=== PATIENT | male | born 1945 | race Caucasian/White ===

== ENCOUNTER 2021-10-15 16:32 | Inpatient (IN) | payer MEDICARE, OTHER ==
[2021-10-15] MEDS ORDERED: Sodium Chloride 0.9% 1,000 ML IV ONE ×2 (16:36→18:25)
[2021-10-15] MEDS ORDERED: Sodium Chloride 0.9% 10 ML Syringe FLUSH PRN (16:36)
[2021-10-15] MEDS ORDERED: Piperacillin/Tazobactam 3.375 GM in Sodium Chloride 0.9% 100 ML IV ONE (16:36)
[2021-10-15] MEDS ORDERED: Sodium Chloride 0.9% 2.5 ML Syringe FLUSH PRN (16:36)
[2021-10-15] MEDS ORDERED: Acetaminophen 325 MG Tab PO ONE (16:50)
[2021-10-15 17:12] LABS: BLOOD UREA NITROGEN,BUN 43 mg/dL (7.0-18.0); CARBON DIOXIDE,CO2 21.5 mmol/L (21.0-32.0); CHLORIDE,CL 101 mmol/L (98-107); ESTIMATED GFR 29 mL/min (>60); GLUCOSE RANDOM 269 mg/dL (74-106); SODIUM,NA 136 mmol/L (136-148)
[2021-10-15] MEDS ORDERED: Lactated Ringers 1,000 ML IV ONE (18:25)
[2021-10-15] MEDS ORDERED: VANCOmycin 1.75 GM/350 ML 1.75 GM in Premix Bag 1 BAG IV ONE ×2 (19:00→21:00)
[2021-10-15] MEDS ORDERED: Azithromycin 500 MG Vial IV SCH ×2 (19:00→22:00)
[2021-10-15] MEDS: Gabapentin 300 MG Cap PO SCH (21:10)
[2021-10-15] MEDS: Apixaban 5 MG Tab PO SCH (21:10)
[2021-10-15] MEDS: Metoprolol Tartrate 50 MG Tab PO SCH (21:20)
[2021-10-15] MEDS ORDERED: Norepinephrine 4 MG in Dextrose 5% in Water 246 ML IV SCH ×2 (22:45)
[2021-10-15] MEDS: Piperacillin/Tazobactam 3.375 GM in Sodium Chloride 0.9% 50 ML IV SCH (22:49)
[2021-10-15] MEDS: Azithromycin 500 MG in Sodium Chloride 0.9% 250 ML IV SCH (23:35)
[2021-10-16] MEDS: Piperacillin/Tazobactam 3.375 GM in Sodium Chloride 0.9% 50 ML IV SCH ×4 (03:55→21:15)
[2021-10-16] MEDS ORDERED: Glucagon,Human Recombinant 1 MG Vial IM PRN (04:20)
[2021-10-16] MEDS ORDERED: 50% Dextrose in Water 50 ML Syringe IVPUSH PRN (04:20)
[2021-10-16] MEDS: Albuterol/Ipratropium 3.0-0.5 MG/3 ML Neb Soln NEB PRN ×2 (06:37→16:18)
[2021-10-16 06:51] LABS: CARBON DIOXIDE,CO2 23.5 mmol/L (21.0-32.0)
[2021-10-16] MEDS: Insulin Aspart 100 Units/ML 3 ML Pen SUBCUT SCH ×3 (08:23→17:36)
[2021-10-16] MEDS: Allopurinol 300 MG Tab PO SCH (08:47)
[2021-10-16] MEDS: atorvaSTATin 10 MG Tab PO SCH (08:48)
[2021-10-16] MEDS: predniSONE 5 MG Tab PO SCH (08:48)
[2021-10-16] MEDS: Apixaban 5 MG Tab PO SCH ×2 (08:48→21:15)
[2021-10-16] MEDS: Metoprolol Tartrate 50 MG Tab PO SCH ×3 (08:49→21:14)
[2021-10-16] MEDS ORDERED: Colchicine 0.6 MG Tab PO SCH (09:00)
[2021-10-16 21:02] LABS: BORDETELLA PARAPERT IS1001 Not Detected (Not Detected)
[2021-10-16] MEDS: Gabapentin 300 MG Cap PO SCH (21:15)
[2021-10-16] MEDS: Azithromycin 500 MG in Sodium Chloride 0.9% 250 ML IV SCH (23:13)
[2021-10-17] MEDS: Piperacillin/Tazobactam 3.375 GM in Sodium Chloride 0.9% 50 ML IV SCH ×4 (03:15→22:00)
[2021-10-17 06:00] LABS: CARBON DIOXIDE,CO2 21.2 mmol/L (21.0-32.0); POTASSIUM,K 3.2 mmol/L (3.5-5.1)
[2021-10-17] MEDS: Insulin Aspart 100 Units/ML 3 ML Pen SUBCUT SCH ×3 (07:56→17:22)
[2021-10-17] MEDS ORDERED: Potassium Chloride 20 MEQ Tab.ER PO ONE (09:09)
[2021-10-17] MEDS: Allopurinol 300 MG Tab PO SCH (09:50)
[2021-10-17] MEDS: Apixaban 5 MG Tab PO SCH ×2 (09:50→20:35)
[2021-10-17] MEDS: atorvaSTATin 10 MG Tab PO SCH (09:50)
[2021-10-17] MEDS: predniSONE 5 MG Tab PO SCH (09:50)
[2021-10-17] MEDS: Metoprolol Tartrate 50 MG Tab PO SCH ×2 (09:50→20:34)
[2021-10-17] MEDS: Albuterol/Ipratropium 3.0-0.5 MG/3 ML Neb Soln NEB PRN ×3 (10:08→23:26)
[2021-10-17] MEDS ORDERED: Polyethylene Glycol 3350 Powder 17 GM Packet PO ONE (10:14)
[2021-10-17] MEDS ORDERED: Docusate Sodium 100 MG Cap PO PRN (10:15)
[2021-10-17] MEDS ORDERED: Bisacodyl 5 MG Tab PO PRN (10:15)
[2021-10-17] MEDS: Gabapentin 300 MG Cap PO SCH (20:34)
[2021-10-17] MEDS: Azithromycin 500 MG in Sodium Chloride 0.9% 250 ML IV SCH (22:37)
[2021-10-18] MEDS: Piperacillin/Tazobactam 3.375 GM in Sodium Chloride 0.9% 50 ML IV SCH ×4 (03:56→21:55)
[2021-10-18 07:02] LABS: CARBON DIOXIDE,CO2 21.4 mmol/L (21.0-32.0); POTASSIUM,K 3.4 mmol/L (3.5-5.1)
[2021-10-18] MEDS: Insulin Aspart 100 Units/ML 3 ML Pen SUBCUT SCH ×3 (08:01→17:18)
[2021-10-18] MEDS: predniSONE 5 MG Tab PO SCH (08:17)
[2021-10-18] MEDS: Allopurinol 300 MG Tab PO SCH (08:17)
[2021-10-18] MEDS: Apixaban 5 MG Tab PO SCH ×2 (08:17→20:26)
[2021-10-18] MEDS: atorvaSTATin 10 MG Tab PO SCH (08:18)
[2021-10-18] MEDS: Metoprolol Tartrate 50 MG Tab PO SCH ×2 (08:18→20:26)
[2021-10-18] MEDS: Albuterol/Ipratropium 3.0-0.5 MG/3 ML Neb Soln NEB PRN (13:43)
[2021-10-18] MEDS: Gabapentin 300 MG Cap PO SCH (20:26)
[2021-10-18] MEDS: Azithromycin 500 MG in Sodium Chloride 0.9% 250 ML IV SCH (22:28)
[2021-10-19] MEDS: Piperacillin/Tazobactam 3.375 GM in Sodium Chloride 0.9% 50 ML IV SCH (03:33)
[2021-10-19] MEDS: Albuterol/Ipratropium 3.0-0.5 MG/3 ML Neb Soln NEB PRN ×2 (05:55→20:16)
[2021-10-19 06:16] LABS: CARBON DIOXIDE,CO2 21.9 mmol/L (21.0-32.0); POTASSIUM,K 3.3 mmol/L (3.5-5.1)
[2021-10-19] MEDS: Insulin Aspart 100 Units/ML 3 ML Pen SUBCUT SCH ×3 (08:12→17:57)
[2021-10-19] MEDS: Allopurinol 300 MG Tab PO SCH (08:19)
[2021-10-19] MEDS: Metoprolol Tartrate 50 MG Tab PO SCH ×2 (08:19→20:14)
[2021-10-19] MEDS: Apixaban 5 MG Tab PO SCH ×2 (08:19→20:15)
[2021-10-19] MEDS: predniSONE 5 MG Tab PO SCH (08:19)
[2021-10-19] MEDS: atorvaSTATin 10 MG Tab PO SCH (08:19)
[2021-10-19] MEDS ORDERED: Potassium Chloride 20 MEQ Tab.ER PO ONE (09:30)
[2021-10-19] MEDS: cefTRIAXone 2 GM/50 ML BAG IV SCH (09:54)
[2021-10-19] MEDS: Gabapentin 300 MG Cap PO SCH (20:15)
[2021-10-19] MEDS: Azithromycin 500 MG in Sodium Chloride 0.9% 250 ML IV SCH (22:31)
[2021-10-20 07:42] LABS: CARBON DIOXIDE,CO2 22.3 mmol/L (21.0-32.0); POTASSIUM,K 3.5 mmol/L (3.5-5.1)
[2021-10-20] MEDS: Insulin Aspart 100 Units/ML 3 ML Pen SUBCUT SCH ×3 (08:09→17:14)
[2021-10-20] MEDS: Apixaban 5 MG Tab PO SCH ×2 (08:56→20:55)
[2021-10-20] MEDS: Metoprolol Tartrate 50 MG Tab PO SCH ×2 (08:56→20:53)
[2021-10-20] MEDS: predniSONE 5 MG Tab PO SCH (08:57)
[2021-10-20] MEDS: atorvaSTATin 10 MG Tab PO SCH (08:57)
[2021-10-20] MEDS: Allopurinol 300 MG Tab PO SCH (08:57)
[2021-10-20] MEDS: cefTRIAXone 2 GM/50 ML BAG IV SCH (09:39)
[2021-10-20] MEDS: Torsemide 20 MG Tab PO SCH ×2 (13:24→21:22)
[2021-10-20] MEDS: Albuterol/Ipratropium 3.0-0.5 MG/3 ML Neb Soln NEB PRN ×2 (14:52→21:23)
[2021-10-20] MEDS: Gabapentin 300 MG Cap PO SCH (20:54)
[2021-10-20] MEDS: Azithromycin 500 MG in Sodium Chloride 0.9% 250 ML IV SCH (22:31)
[2021-10-21] MEDS: Torsemide 20 MG Tab PO SCH ×3 (05:57→22:44)
[2021-10-21 06:29] LABS: CARBON DIOXIDE,CO2 24.8 mmol/L (21.0-32.0); POTASSIUM,K 3.3 mmol/L (3.5-5.1)
[2021-10-21] MEDS: Insulin Aspart 100 Units/ML 3 ML Pen SUBCUT SCH ×3 (07:55→17:10)
[2021-10-21] MEDS: atorvaSTATin 10 MG Tab PO SCH (08:07)
[2021-10-21] MEDS: Apixaban 5 MG Tab PO SCH ×2 (08:07→20:23)
[2021-10-21] MEDS: Allopurinol 300 MG Tab PO SCH (08:08)
[2021-10-21] MEDS: Metoprolol Tartrate 50 MG Tab PO SCH ×2 (08:10→20:25)
[2021-10-21] MEDS: predniSONE 5 MG Tab PO SCH (08:11)
[2021-10-21] MEDS: cefTRIAXone 2 GM/50 ML BAG IV SCH (09:20)
[2021-10-21] MEDS ORDERED: Potassium Chloride 20 MEQ Tab.ER PO ONE (11:56)
[2021-10-21] MEDS: Gabapentin 300 MG Cap PO SCH (20:23)
[2021-10-21] MEDS: Azithromycin 500 MG in Sodium Chloride 0.9% 250 ML IV SCH (22:44)
[2021-10-22] MEDS: Torsemide 20 MG Tab PO SCH ×3 (06:05→22:58)
[2021-10-22 06:34] LABS: CARBON DIOXIDE,CO2 25.2 mmol/L (21.0-32.0)
[2021-10-22] MEDS: Insulin Aspart 100 Units/ML 3 ML Pen SUBCUT SCH ×3 (07:47→17:03)
[2021-10-22] MEDS: atorvaSTATin 10 MG Tab PO SCH (08:57)
[2021-10-22] MEDS: Allopurinol 300 MG Tab PO SCH (08:57)
[2021-10-22] MEDS: Metoprolol Tartrate 50 MG Tab PO SCH ×2 (08:58→20:13)
[2021-10-22] MEDS: Apixaban 5 MG Tab PO SCH ×2 (08:58→20:14)
[2021-10-22] MEDS: predniSONE 5 MG Tab PO SCH (08:58)
[2021-10-22] MEDS: cefTRIAXone 2 GM/50 ML BAG IV SCH (08:58)
[2021-10-22] MEDS: Potassium Chloride 20 MEQ Tab.ER PO SCH ×2 (13:37→22:57)
[2021-10-22] MEDS: Gabapentin 300 MG Cap PO SCH (20:12)
[2021-10-22] MEDS: Azithromycin 500 MG in Sodium Chloride 0.9% 250 ML IV SCH (22:59)
[2021-10-23] MEDS: Torsemide 20 MG Tab PO SCH ×3 (05:32→22:29)
[2021-10-23] MEDS: Potassium Chloride 20 MEQ Tab.ER PO SCH ×3 (05:32→22:29)
[2021-10-23 07:30] LABS: CARBON DIOXIDE,CO2 26.6 mmol/L (21.0-32.0); POTASSIUM,K 2.9 mmol/L (3.5-5.1)
[2021-10-23] MEDS: Insulin Aspart 100 Units/ML 3 ML Pen SUBCUT SCH ×3 (07:52→16:44)
[2021-10-23] MEDS ORDERED: NS with KCl 40mEq 1,000 ML IV ONE (09:00)
[2021-10-23] MEDS: Apixaban 5 MG Tab PO SCH ×2 (09:08→20:54)
[2021-10-23] MEDS: Allopurinol 300 MG Tab PO SCH (09:08)
[2021-10-23] MEDS: atorvaSTATin 10 MG Tab PO SCH (09:08)
[2021-10-23] MEDS: predniSONE 5 MG Tab PO SCH (09:08)
[2021-10-23] MEDS: cefTRIAXone 2 GM/50 ML BAG IV SCH (09:09)
[2021-10-23] MEDS: Metoprolol Tartrate 50 MG Tab PO SCH ×2 (09:09→20:54)
[2021-10-23] MEDS: Gabapentin 300 MG Cap PO SCH (20:52)
[2021-10-23] MEDS: Azithromycin 500 MG in Sodium Chloride 0.9% 250 ML IV SCH (22:32)
[2021-10-24] MEDS: Potassium Chloride 20 MEQ Tab.ER PO SCH (05:44)
[2021-10-24] MEDS: Torsemide 20 MG Tab PO SCH (05:45)
[2021-10-24 07:14] LABS: CARBON DIOXIDE,CO2 29.4 mmol/L (21.0-32.0); POTASSIUM,K 3.4 mmol/L (3.5-5.1)
[2021-10-24] MEDS: Insulin Aspart 100 Units/ML 3 ML Pen SUBCUT SCH ×2 (08:38→12:23)
[2021-10-24] MEDS: Apixaban 5 MG Tab PO SCH (08:38)
[2021-10-24] MEDS: atorvaSTATin 10 MG Tab PO SCH (08:38)
[2021-10-24] MEDS: Metoprolol Tartrate 50 MG Tab PO SCH (08:38)
[2021-10-24] MEDS: predniSONE 5 MG Tab PO SCH (08:38)
[2021-10-24] MEDS: Allopurinol 300 MG Tab PO SCH (08:38)
[2021-10-24] MEDS: cefTRIAXone 2 GM/50 ML BAG IV SCH (08:39)
== END 2021-10-24 13:30 | disposition home or self-care (01) | DRG 871 ==
LOC: MW.ED 16:32 → MW.ICU 18:26 → MW.MS 10-19 12:23
PROVIDERS: ADMIT Internal Medicine; ATTEND Internal Medicine
PROC: 5A1945Z Respiratory Ventilation, 24-96 Consecutive Hours (ICD-10-PCS; principal; 2021-10-15)
PROC: 3E03329 Introduction of Other Anti-infective into Peripheral Vein, Percutaneous Approach (ICD-10-PCS; 2021-10-15)
DX: A40.8 Other streptococcal sepsis (principal); J18.9 Pneumonia, unspecified organism; J96.01 Acute respiratory failure with hypoxia; R65.21 Severe sepsis with septic shock; L03.317 Cellulitis of buttock; E85.9 Amyloidosis, unspecified; I13.0 Hypertensive heart and chronic kidney disease with heart failure and stage 1 through stage 4 chronic kidney disease, or unspecified chronic kidney disease; G93.40 Encephalopathy, unspecified; N18.5 Chronic kidney disease, stage 5; I50.9 Heart failure, unspecified; E11.22 Type 2 diabetes mellitus with diabetic chronic kidney disease; M10.9 Gout, unspecified; Z20.822 Contact with and (suspected) exposure to COVID-19; Z79.01 Long term (current) use of anticoagulants; Z79.52 Long term (current) use of systemic steroids; Z79.899 Other long term (current) drug therapy; Z95.0 Presence of cardiac pacemaker; Z86.19 Personal history of other infectious and parasitic diseases; Z86.718 Personal history of other venous thrombosis and embolism
CPT/HCPCS: 36415; 36600; 51702; 71045; 71045-26; 80048; 80053; 80202; 81001; 82803; 82947; 83605; 83735; 84100; 85025; 85610; 87040; 87077; 87154; 87184; 87186; 87486; 87581; 87633; 87798; 87899; 93010; 93306; 94640; 94660; 96365; 97110-GP; 97112-GP; 97116-GP; 97163-GP; 97530-GP; 99285-25; 99291; A9270-GY; J0456; J0696; J1815-GY; J2543; J3370; J3480; J3490; J7030; J7050; J7120; J7512; J7620-GY; U0002